=== PATIENT | male | born 1960 | race Caucasian/White ===

== ENCOUNTER 2017-04-13 13:38 | Emergency (ER) | payer MEDICAID ==
[~2017-04-13 13:38] MED LIST: CEPHALEXIN 500 MG CAP PO SCH; SULFAMETHOX/TMP 800/160 MG 1 TAB PO SCH
[2017-04-13 14:04] VITALS: BP 143/90; PULSE 61; RESP 17; TEMP 98.4; O2SAT 95
[2017-04-13] MEDS ORDERED: SULFAMETHOX/TMP 800/160 MG 1 TAB PO ONE (15:43)
[2017-04-13] MEDS ORDERED: CEPHALEXIN 500 MG CAP PO ONE (15:43)
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
== END 2017-04-13 17:21 | disposition home or self-care (01) ==
DX: S40.022A Contusion of left upper arm, initial encounter (principal); L03.119 Cellulitis of unspecified part of limb; F17.200 Nicotine dependence, unspecified, uncomplicated; V19.9XXA Pedal cyclist (driver) (passenger) injured in unspecified traffic accident, initial encounter; Y92.410 Unspecified street and highway as the place of occurrence of the external cause; Y99.8 Other external cause status; Y93.55 Activity, bike riding

== ENCOUNTER 2018-04-14 14:28 | Emergency (ER) | payer MEDICAID, OTHER ==
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
[2018-04-14 15:03] LABS: PLATELET COUNT 347 10^3/uL (150-400)
[2018-04-14] MEDS ORDERED: HALOPERIDOL LACT 5 MG/ML INJ IM ONE (15:41)
[2018-04-14 21:30] VITALS: BP 132/74
== END 2018-04-14 21:30 | disposition home or self-care (01) ==
LOC: EDUNIT#
DX: F15.10 Other stimulant abuse, uncomplicated (principal); L02.01 Cutaneous abscess of face
CPT/HCPCS: J1630

== ENCOUNTER 2018-04-27 03:52 | Emergency (ER) | payer MEDICAID ==
--- NOTE | 2018-04-27 03:55 | EDPHY ---
H & P Time Seen by Provider: 04/27/18 03:55 HPI/ROS: HPI CHIEF COMPLAINT: Medical clearance for longterm possible facial cellulitis. HISTORY OF PRESENT ILLNESS: 58-year-old male, presents emergency room under police custody for medical clearance for longterm. Patient is concerned that he may have a small soft tissue for as small forehead infection. Patient states he bumped his forehead 5 days ago. Since then has some mild swelling. No headache. No neck pain. No LOC. Mild redness to his forehead. Past Medical History: History of multiple soft tissue skin infections. Past Surgical History: No recent surgery Social History: Homeless, polysubstance abuse. Family History: Noncontributory ROS REVIEW OF SYSTEMS: 10 Systems were reviewed and negative with the exception of the elements mentioned in the history of present illness. Exam Constitutional triage nursing summary reviewed, vital signs reviewed, awake/ alert. Eyes normal conjunctivae and sclera, EOMI, PERRLA. HENT normal inspection, atraumatic, moist mucus membranes, no epistaxis, neck supple/ no meningismus, no raccoon eyes. Respiratory clear to auscultation bilaterally, normal breath sounds, no respiratory distress, no wheezing. Cardiovascular rate normal, regular rhythm, no murmur, no edema, distal pulses normal. Gastrointestinal soft, non-tender, no rebound, no guarding, normal bowel sounds, no distension, no pulsatile mass. Genitourinary no CVA tenderness. Musculoskeletal no midline vertebral tenderness, full range of motion, no calf swelling, no tenderness of extremities, no meningismus, good pulses, neurovascularly intact. Skin forehead: Area of minimal redness to the mid forehead. No abscess Neurologic awake, alert and oriented x 3, AAOx3, moves all 4 extremities equally, motor intact, sensory intact, CN II-XII intact, normal cerebellar, normal vision, normal speech. Psychiatric normal mood/affect. Heme/Lymph/Immune no lymphadenopathy. Differential Diagnosis: Includes but is not limited to in a particular order facial cellulitis, soft tissue contusion, soft tissue infection Medical Decision Making: Plan for this patient be medically cleared for longterm. No evidence of abscess on the forehead very small area of erythema. Recommend warm compresses, Keflex. Return precautions discussed. Source: Patient, Police - Medical/Surgical History Hx Asthma: No Hx Chronic Respiratory Disease: Yes Hx Diabetes: No Hx Cardiac Disease: No Hx Renal Disease: No Hx Cirrhosis: No Hx Alcoholism: No Hx HIV/AIDS: No Hx Splenectomy or Spleen Trauma: No Other PMH: JAMARI, Back surguries, meth abuse, - Social History Smoking Status: Former smoker Allergies/Adverse Reactions: No Known Allergies Allergy (Unverified 03/21/16 00:49) Home Medications: Medication Instructions Recorded Imodium A-D 02/27/18 Cephalexin [Keflex] 500 mg PO Q6H #28 cap 04/27/18 Departure - Departure Disposition: Home, Routine, Self-Care Clinical Impression: Facial cellulitis Condition: Good Instructions: Cellulitis (ED) Additional Instructions: 1. Medically cleared for longterm. 2. Take Keflex as prescribed. Referrals: NONE *PRIMARY CARE P,. [Primary Care Provider] - As per Instructions Prescriptions: Cephalexin [Keflex] 500 mg PO Q6H #28 cap
[2018-04-27 04:01] VITALS: BP 141/89
== END 2018-04-27 04:03 ==
DX: L03.211 Cellulitis of face (principal); Z59.0 Homelessness; G57.33 Lesion of lateral popliteal nerve, bilateral lower limbs; F19.10 Other psychoactive substance abuse, uncomplicated

== ENCOUNTER 2018-07-25 20:45 | Emergency (ER) | payer MEDICAID ==
[2018-07-25] MEDS ORDERED: LORazepam 2 MG/ML INJ ONE (21:14)
[2018-07-25] MEDS ORDERED: HALOPERIDOL LACT 5 MG/ML INJ IM ONE (21:14)
[2018-07-25] MEDS ORDERED: LORazepam 2 MG/ML INJ IM ONE (21:14)
[2018-07-25] MEDS ORDERED: HALOPERIDOL LACT 5 MG/ML INJ ONE (21:14)
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
[2018-07-26 05:41] VITALS: BP 158/89
== END 2018-07-26 05:25 | disposition home or self-care (01) ==
LOC: EDUNIT#
PROC: 09QKXZZ Repair Nasal Mucosa and Soft Tissue, External Approach (ICD-10-PCS; principal; 2018-07-25)
DX: S01.21XA Laceration without foreign body of nose, initial encounter (principal); S02.2XXA Fracture of nasal bones, initial encounter for closed fracture; V18.4XXA Pedal cycle driver injured in noncollision transport accident in traffic accident, initial encounter; Y93.55 Activity, bike riding; Y92.9 Unspecified place or not applicable; Y99.9 Unspecified external cause status
CPT/HCPCS: J1630; J2060

== ENCOUNTER 2018-07-26 10:40 | Emergency (ER) | payer MEDICAID ==
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
[2018-07-26 18:03] VITALS: BP 151/77
== END 2018-07-26 17:00 | disposition home or self-care (01) ==
DX: R40.0 Somnolence (principal); F15.10 Other stimulant abuse, uncomplicated; S02.2XXD Fracture of nasal bones, subsequent encounter for fracture with routine healing; Z59.0 Homelessness

== ENCOUNTER 2019-01-04 16:53 | Emergency (ER) | payer MEDICAID | END 2019-01-04 18:00 | disposition home or self-care (01) ==

== ENCOUNTER 2019-01-05 10:05 | Emergency (ER) | payer MEDICAID | END 2019-01-05 10:35 | disposition home or self-care (01) ==